=== PATIENT | male | born 1995 | race Caucasian/White ===

== ENCOUNTER → 2021-10-13 | Day surgery (SDC) | payer OTHER ==
[~2021-10-13] VITALS: Ht 185.4 cm; Wt 104.3 kg
[~2021-10-13] MED LIST: KETOROLAC TROME10 MG PO; SERTRALINE HCL50 MG PO
== END | disposition home or self-care (01) ==
LOC: FAS 07:51
DX: D17.24 Benign lipomatous neoplasm of skin and subcutaneous tissue of left leg (principal); I10 Essential (primary) hypertension; Z88.6 Allergy status to analgesic agent
CPT/HCPCS: J1100; J1170; J1885; J2250; J2405; J2704; J3010; J7120